=== PATIENT | female | born 1950 | race African-American/Black ===

== ENCOUNTER 2024-06-29 19:05 | Emergency (ER) | payer MEDICARE ==
[~2024-06-29] VITALS: Ht 175.3 cm; Wt 55.0 kg
[2024-06-29 19:06] VITALS: O2SAT 97
[2024-06-29] MEDS: ASPIRIN 81MG EC TABLET PO ONE (21:02)
[2024-06-29 21:04] LABS: BASOPHILS % 1.1 % (0.0-2.0); HEMATOCRIT. 41.9 % (36.0-48.0); HEMOGLOBIN. 14.1 g/dL (12.0-16.0); LYMPHOCYTES % 31.2 % (20.0-50.0); MEAN CORPUSCULAR HEMOGLOBIN 30.3 pg (28.0-32.0); MEAN CORPUSCULAR HGB CONC 33.6 g/dL (31.0-37.0); MEAN CORPUSCULAR VOLUME 90.4 fL (81.0-99.0); MEAN PLATELET VOLUME 10.2 fl (7.4-10.4); MONOCYTES % 10.9 % (2.0-8.0); NEUTROPHILS % 55.8 % (40.0-76.0); RED BLOOD CELL COUNT 4.63 mill/uL (4.2-5.4); RED CELL DISTRIBUTION WIDTH 14.7 % (11.6-14.6)
[2024-06-29 21:08] LABS: CHLORIDE 107 mEq/L (98-107)
[2024-06-29 21:09] LABS: CARBON DIOXIDE 27 mEq/L (21-32); SODIUM 142 mEq/L (136-145)
[2024-06-29 21:10] LABS: CALCIUM 9.9 mg/dL (8.7-10.4)
[2024-06-29 21:11] LABS: DIFFERENTIAL COMMENT 1
[2024-06-29 21:12] LABS: ADD RBC MORPHOLOGY YES
[2024-06-29 21:14] LABS: CREATININE 0.9 mg/dL (0.6-1.0)
[2024-06-29 21:15] LABS: GLUCOSE 81 mg/dL (70-105); TROPONIN I HIGH SENSITIVITY 34 ng/L (3.0-34); UREA NITROGEN BLOOD 12 mg/dL (9-23)
[2024-06-29 21:16] LABS: ALANINE AMINOTRANSFERASE 25 IU/L (10-49); ALBUMIN 4.4 g/dL (3.2-4.8); ASPARTATE AMINOTRANSFERASE 34 IU/L (<34)
[2024-06-29 21:18] LABS: BILIRUBIN DIRECT 0.2 mg/dL (<=3.0); BILIRUBIN TOTAL 1.1 mg/dL (0.1-1.0); PROTEIN TOTAL 7.2 g/dL (6.0-8.3)
[2024-06-29 21:19] LABS: INR 0.9; PARTIAL THROMBOPLASTIN TIME 27.1 sec (23.4-31.0); PROTHROMBIN TIME 10.6 sec (9.6-11.0)
[2024-06-29 21:23] LABS: CLARITY URINE CLEAR (CLEAR); COLOR URINE YELLOW (YELLOW); GLUCOSE URINE NEGATIVE (NEGATIVE); KETONES URINE NEGATIVE (NEGATIVE); LEUKOCYTE ESTERASE URINE NEGATIVE (NEGATIVE); NITRITE URINE NEGATIVE (NEGATIVE); OCCULT BLOOD URINE NEGATIVE (NEGATIVE); PH URINE 5.5 (4.5-8.0); PROTEIN URINE NEGATIVE (NEGATIVE); SPECIFIC GRAVITY URINE 1.012 (1.005-1.030); UROBILINOGEN URINE 0.2 E.U./dL (0.2-1.0)
[2024-06-29 21:32] LABS: PLATELET ESTIMATE SLIGHTLY DECREASED
[2024-06-29 21:40] LABS: PLATELET 133 x1000/uL (130-400)
[2024-06-29 22:10] VITALS: BP 128/71; PULSE 74; RESP 14; TEMP 37.05852; O2SAT 98
== END 2024-06-29 22:45 | disposition left against medical advice (07) ==
LOC: ER 19:05 → EDBEDREQ 22:17 → EDBEDREQTM 22:17 → ER 22:45
DX: R07.9 Chest pain, unspecified (principal); Z55.6 Problems related to health literacy
CPT/HCPCS: 36415; 71045; 80048; 80076; 81003; 83880; 84484; 85025; 93005; 99285; A4606

== ENCOUNTER 2025-03-16 16:02 | Emergency (ER) | payer MEDICARE ==
[~2025-03-16] VITALS: Ht 175.3 cm; Wt 65.0 kg
[~2025-03-16 16:02] MED LIST: METO25TA6 PO
[2025-03-16 16:08] VITALS: O2SAT 99
[2025-03-16 16:50] VITALS: BP 133/73; PULSE 79; RESP 15; TEMP 36.7; O2SAT 99
[2025-03-16 17:02] LABS: HEMATOCRIT. 37.6 % (36.0-48.0); HEMOGLOBIN. 12.2 g/dL (12.0-16.0); MEAN PLATELET VOLUME 10.5 fl (7.4-10.4); PLATELET 125 x1000/uL (130-400); RED BLOOD CELL COUNT 4.22 mill/uL (4.2-5.4); RED CELL DISTRIBUTION WIDTH 15.5 % (11.6-14.6)
[2025-03-16 17:13] LABS: INR 0.9
[2025-03-16 17:18] LABS: CREATININE 0.9 mg/dL (0.6-1.0)
[2025-03-16 17:19] LABS: UREA NITROGEN BLOOD 20 mg/dL (9-23)
[2025-03-16] MEDS: ACETAMINOPHEN 325MG TABLET PO ONE (17:20)
[2025-03-16 17:26] LABS: LYMPHOCYTES % MANUAL 37.0 % (20.0-60.0); MONOCYTES % MANUAL 12.0 % (2.0-8.0); NEUTROPHILS % MANUAL 51.0 % (45.0-75.0); PLATELET ESTIMATE DECREASED
[2025-03-16 17:32] LABS: TROPONIN I HIGH SENSITIVITY 44 ng/L (3.0-34)
== END 2025-03-16 18:26 | disposition left against medical advice (07) ==
LOC: ER 16:02 → EDBEDREQTM 17:46 → EDBEDREQ 17:46 → ENRESERV 17:50 → ER 18:26 → CMPBEDREQ 03-18 08:29
DX: I21.4 Non-ST elevation (NSTEMI) myocardial infarction (principal); Z79.899 Other long term (current) drug therapy
CPT/HCPCS: 36415; 71045; 80048; 84484; 85025; 93005; 99285

== ENCOUNTER 2025-03-16 19:49 | Emergency (ER) | payer MEDICARE ==
[~2025-03-16] VITALS: Ht 177.8 cm; Wt 65.0 kg
[2025-03-16 20:43] VITALS: O2SAT 98
[2025-03-17 00:17] VITALS: BP 164/95; PULSE 66; RESP 16; TEMP 37.1; O2SAT 100
[2025-03-17] MEDS ORDERED: ACETAMINOPHEN 500MG TABLET PO ONE (02:00)
== END 2025-03-17 02:36 | disposition left against medical advice (07) ==
LOC: ER 19:49
DX: S09.90XA Unspecified injury of head, initial encounter (principal); G44.309 Post-traumatic headache, unspecified, not intractable; W08.XXXA Fall from other furniture, initial encounter; Y93.89 Activity, other specified; Y92.89 Other specified places as the place of occurrence of the external cause; Y99.8 Other external cause status
CPT/HCPCS: 99282

== ENCOUNTER 2025-05-23 15:13 | Emergency (ER) | payer MEDICARE ==
[~2025-05-23] VITALS: Ht 177.8 cm; Wt 73.0 kg
[2025-05-23 15:25] VITALS: O2SAT 98
[2025-05-23] MEDS: ACETAMINOPHEN 325MG TABLET PO ONE (16:41)
[2025-05-23] MEDS: LIDOCAINE 5% PATCH TOP SCH (16:42)
[2025-05-23 16:47] LABS: CLARITY URINE CLOUDY (CLEAR); COLOR URINE YELLOW (YELLOW); GLUCOSE URINE NEGATIVE (NEGATIVE); KETONES URINE TRACE (NEGATIVE); LEUKOCYTE ESTERASE URINE NEGATIVE (NEGATIVE); NITRITE URINE NEGATIVE (NEGATIVE); OCCULT BLOOD URINE NEGATIVE (NEGATIVE); PH URINE 5.0 (4.5-8.0); PROTEIN URINE NEGATIVE (NEGATIVE); SPECIFIC GRAVITY URINE 1.029 (1.005-1.030); UROBILINOGEN URINE 0.2 E.U./dL (0.2-1.0)
[2025-05-23] MEDS ORDERED: LIDO-53 TP (18:47)
[2025-05-23] MEDS ORDERED: ACET-2708 MT (18:47)
[2025-05-23 18:50] VITALS: BP 132/84; PULSE 78; RESP 16; TEMP 36.7; O2SAT 98
[2025-05-23 19:11] LABS: BACTERIA URINE NONE SEEN; RBC URINE NONE SEEN /hpf (0-2); SQUAMOUS EPITHELIAL CELL URINE RARE /lpf (RARE/1+); URIC ACID CRYSTALS URINE 2+ /lpf; WBC URINE NONE SEEN /hpf (0-2)
== END 2025-05-23 18:55 | disposition home or self-care (01) ==
LOC: ER 15:13
DX: S29.012A Strain of muscle and tendon of back wall of thorax, initial encounter (principal); X58.XXXA Exposure to other specified factors, initial encounter; Y93.89 Activity, other specified; Y92.89 Other specified places as the place of occurrence of the external cause; Y99.8 Other external cause status
CPT/HCPCS: 81003; 99283